=== PATIENT | female | born 1965 | race Caucasian/White ===

== ENCOUNTER 2017-10-12 12:59 | Emergency (ER) | payer MEDICAID ==
[~2017-10-12] VITALS: Ht 165.1 cm; Wt 111.5 kg
[~2017-10-12 12:59] MED LIST: ACET325T14 PO; APIX5TAB PO; ASPI325T17 PO; CHOL100011 PO; FLEC100T PO; GLUC15006 PO; GLUC500T11 PO; HYAL1CAP PO; IBUP-1484 PO; INSU100C SQ-INSULIN; LOSA25TA5 PO; METO50TA82 PO; OMEP-110 PO; OMEP20TA62 PO; SOTA120T26 PO
[2017-10-12 13:01] VITALS: BP 171/91
== END 2017-10-12 15:00 | disposition home or self-care (01) ==
LOC: ED 14:54
DX: G89.29 Other chronic pain (principal); M25.562 Pain in left knee; I10 Essential (primary) hypertension; I48.91 Unspecified atrial fibrillation; E11.9 Type 2 diabetes mellitus without complications; F17.210 Nicotine dependence, cigarettes, uncomplicated; N83.209 Unspecified ovarian cyst, unspecified side
CPT/HCPCS: 99284

== ENCOUNTER 2018-02-02 18:57 | Emergency (ER) | payer MEDICAID ==
[~2018-02-02] VITALS: Ht 165.1 cm; Wt 113.0 kg
[2018-02-02 19:02] VITALS: BP 163/95
[2018-02-02] MEDS ORDERED: KETOROLAC 30 MG/1 ML ONE (19:27)
[2018-02-02] MEDS ORDERED: METHOCARBAMOL 750 MG TABLET ONE (19:27)
[2018-02-02] MEDS ORDERED: METHOCARBAMOL 500 MG TABLET PO ONE ×2 (19:30)
[2018-02-02] MEDS ORDERED: KETOROLAC 30 MG/1 ML IM ONE (19:30)
== END 2018-02-02 20:28 | disposition home or self-care (01) ==
LOC: ED 20:08
DX: S39.012A Strain of muscle, fascia and tendon of lower back, initial encounter (principal); I10 Essential (primary) hypertension; E11.9 Type 2 diabetes mellitus without complications; M51.36 Other intervertebral disc degeneration, lumbar region; X58.XXXA Exposure to other specified factors, initial encounter; Y93.89 Activity, other specified; Y92.89 Other specified places as the place of occurrence of the external cause; Y99.8 Other external cause status; Z88.6 Allergy status to analgesic agent; Z88.5 Allergy status to narcotic agent; Z88.8 Allergy status to other drugs, medicaments and biological substances
CPT/HCPCS: 72110; 96372; 99284; J1885

== ENCOUNTER → 2019-01-09 | Outpatient (CLI) | payer MEDICARE, MEDICAID ==
[~2019-01-09] MED LIST changes: +ASPIRIN; +ATOR20TA37 PO; +BENZ12LI TP; +FISH1CAP PO; +INSU300I SC; +LOSA25TA25 PO; -LOSA25TA5 PO; +MULTIVITAMIN GUMMIES PO; +NYST1000 PO; +TURMERIC CURCUMIN PO; +TYLENOL ARTHRITIS; +VITAMIN D LIQUID PO
[2019-01-09 11:02] LABS: BASOPHILS # (AUTO) 0.02 x10^3/uL (0-0.1); BASOPHILS % (AUTO) 1 % (0-1); EOSINOPHILS # (AUTO) 0.07 x10^3/uL (0-0.4); EOSINOPHILS % (AUTO) 2 % (1-7); LYMPHOCYTES % (AUTO) 32 % (22-44); MD NO; MEAN CORPUSCULAR HEMOGLOBIN 34.6 pg (27.0-34.8); MEAN CORPUSCULAR HGB CONC 34.6 g/dL (32.4-35.8); MEAN CORPUSCULAR VOLUME 99.8 fL (80-100); MEAN PLATELET VOLUME 7.6 fL (7.4-10.4); MONOCYTES # (AUTO) 0.24 x10^3/uL (0.2-0.8); MONOCYTES % (AUTO) 6 % (2-9); NEUTROPHILS # (AUTO) 2.45 x10^3/uL (1.8-6.8); NEUTROPHILS % (AUTO) 60 % (42-75); PLATELET COUNT 183 x10^3/uL (130-400); RED BLOOD COUNT 4.16 x10^6/uL (3.82-5.3); RED CELL DISTRIBUTION WIDTH 13.6 % (9.6-15.2)
[2019-01-09 11:12] LABS: ALANINE AMINOTRANSFERASE 29 U/L (12-78); ALBUMIN 3.9 g/dL (3.4-5.0); ANION GAP 6 mmol/L (5-15); CALCIUM 8.5 mg/dL (8.5-10.1); CHLORIDE 105 mmol/L (98-107); CREATININE 0.87 mg/dL (0.55-1.02)
[2019-01-09 11:14] LABS: ALKALINE PHOSPHATASE 177 U/L (45-117); BILIRUBIN,TOTAL 0.7 mg/dL (0.2-1.0)
== END | disposition home or self-care (01) ==
LOC: STAR 09:54
PROVIDERS: ATTEND Surgery
DX: Z01.818 Encounter for other preprocedural examination (principal); N63.20 Unspecified lump in the left breast, unspecified quadrant
CPT/HCPCS: 36415; 80053; 85025; 93005

== ENCOUNTER 2019-01-16 10:04 | Day surgery (SDC) | payer MEDICARE, MEDICAID ==
[~2019-01-16] VITALS: Ht 165.1 cm; Wt 104.0 kg
[2019-01-16] MEDS ORDERED: SODIUM BICARBONATE 4.0%, 5ML ONE (11:26)
[2019-01-16] MEDS ORDERED: LIDOCAINE 1%, 20ML ONE (11:26)
[2019-01-16] MEDS ORDERED: LIDOCAINE 1%-EPI 1:100K, 20ML ONE (11:26)
[2019-01-16] MEDS ORDERED: HYDROmorphone 2 MG/ML, 1ML IVPush PRN (11:30)
[2019-01-16] MEDS ORDERED: OXYcodone 5 MG/5 ML ORAL.SOL UDC PO PRN (11:30)
[2019-01-16] MEDS ORDERED: hydrALAzine 20 MG/ML, 1ML IV PRN (11:30)
[2019-01-16] MEDS ORDERED: HALOPERIDOL 5 MG/ML IV PRN (11:30)
[2019-01-16] MEDS ORDERED: LABETALOL 5MG/ML, 20ML IV PRN (11:30)
[2019-01-16] MEDS ORDERED: DIPHENHYDRAMINE 50 MG/ML, 1ML IVPush PRN (11:30)
[2019-01-16] MEDS ORDERED: PROMETHAZINE 25 MG/ML, 1ML IV PRN (11:30)
[2019-01-16] MEDS ORDERED: FENTANYL PF 100 MCG/2ML IV PRN (11:30)
[2019-01-16] MEDS ORDERED: PROCHLORPERAZINE 5 MG/ML, 2ML IV PRN (11:30)
[2019-01-16] MEDS ORDERED: METOPROLOL 1 MG/ML, 5ML IV PRN (11:30)
[2019-01-16] MEDS ORDERED: LACTATED RINGERS 1,000 ML IV SCH (11:57)
[2019-01-16 12:23] VITALS: BP 155/91
[2019-01-16] MEDS ORDERED: ACETAMINOPHEN 500 MG TABLET PO ONE (12:30)
[2019-01-16] MEDS ORDERED: GABAPENTIN 300 MG CAPSULE PO ONE (12:30)
[2019-01-16] MEDS ORDERED: FAMOTIDINE 20 MG/2 ML IVPush ONE (12:30)
[2019-01-16] MEDS ORDERED: LORazepam 2 MG/ML, 1ML IVPush ONE (12:30)
[2019-01-16] MEDS ORDERED: METOCLOPRAMIDE 5 MG/ML, 2ML IVPush ONE (12:30)
[2019-01-16] MEDS ORDERED: FENTANYL PF 100 MCG/2ML ONE ×3 (12:56→17:26)
[2019-01-16] MEDS ORDERED: LORazepam 2 MG/ML, 1ML ONE (13:14)
[2019-01-16] MEDS ORDERED: KETOROLAC 30 MG/1 ML ONE (13:38)
[2019-01-16] MEDS ORDERED: BUPIVACAINE/PF-EPI 0.5% 1:200K INFIL ONE (13:59)
[2019-01-16] MEDS ORDERED: ROCURONIUM 10MG/ML,5ML ONE (14:47)
[2019-01-16] MEDS ORDERED: SUCCINYLCHOLINE 20 MG/ML, 10ML ONE (14:47)
[2019-01-16] MEDS ORDERED: GLYCOPYRROLATE 0.2MG/1ML, 5ML ONE (14:47)
[2019-01-16] MEDS ORDERED: NEOSTIGMINE 1 MG/ML, 10ML ONE (14:47)
[2019-01-16] MEDS ORDERED: ONDANSETRON 2MG/ML, 2ML ONE (14:47)
[2019-01-16] MEDS ORDERED: CEFAZOLIN 1,000 MG ONE (14:47)
[2019-01-16] MEDS ORDERED: PROPOFOL 10 MG/ML, 20ML ONE (14:47)
[2019-01-16] MEDS ORDERED: DEXAMETHASONE 4 MG/ML, 1ML ONE (14:47)
[2019-01-16] MEDS ORDERED: ONDANSETRON 2MG/ML, 2ML IVPush PRN (15:00)
[2019-01-16] MEDS ORDERED: morphine SULFATE 10 MG/ML, 1ML IVPush PRN (15:00)
[2019-01-16] MEDS ORDERED: IBUPROFEN 600 MG TABLET PO SCH (16:00)
== END 2019-01-16 19:15 | disposition home or self-care (01) ==
LOC: CFH 10:04 → OUT 19:15
PROVIDERS: ATTEND Surgery
DX: D24.2 Benign neoplasm of left breast (principal); I10 Essential (primary) hypertension; E11.9 Type 2 diabetes mellitus without complications; K21.9 Gastro-esophageal reflux disease without esophagitis; I48.91 Unspecified atrial fibrillation; Z79.4 Long term (current) use of insulin; Z88.6 Allergy status to analgesic agent; Z88.5 Allergy status to narcotic agent; Z88.8 Allergy status to other drugs, medicaments and biological substances
CPT/HCPCS: 19281; 19301; 76098; 82962; 88307; J0330; J0690; J1100; J1885; J2060; J2405; J2704; J2710; J2765; J3010; J3490; J7120

== ENCOUNTER 2020-01-30 12:01 | Inpatient (IN) | payer MEDICARE ==
[~2020-01-30] VITALS: Ht 165.1 cm; Wt 124.2 kg
[~2020-01-30 12:01] MED LIST changes: -IBUP-1484 PO; +IBUP-1902 PO
--- NOTE | 2020-01-30 12:34 | NUR ---
PT BIB BY EMS FOR SOB, NAUSEA, DIZZY, AND WEAK FOR 2-3 DAYS. PT ALSO HAS NEW ONSET BILAT ANKLE SWELLING. PT FOUND TO BE IN AFIB UPON ARRIVAL AT A RATE AROUND 130. PT SAYS SHE HAD AN ABLATION FOR AFIB IN 2014. PT DOES NOT TAKE MEDS FOR RATE CONTROL. PT RESTING IN GURNEY. IV STARTED. EKG COMPLETE. MD IS BEDSIDE FOR ASSESSMENT.
[2020-01-30] MEDS ORDERED: [UNRECOGNIZED DRUG - OTHER] (12:47)
[2020-01-30] MEDS ORDERED: ASPIRIN 81 MG TABLET CHEW PO ONE (13:00)
[2020-01-30] MEDS ORDERED: SODIUM CHLORIDE FLUSH 10ML SYR IVF ONE (13:00)
[2020-01-30] MEDS ORDERED: METOPROLOL 1 MG/ML, 5ML ONE ×2 (13:02→13:46)
[2020-01-30] MEDS ORDERED: ASPIRIN 81 MG TABLET CHEW ONE (13:02)
[2020-01-30] MEDS: METOPROLOL 1 MG/ML, 5ML IVPush PRN ×2 (13:06→13:50)
--- NOTE | 2020-01-30 13:10 | NUR ---
PT MEDICATED PER MAR. WILL MONITOR HR
[2020-01-30 13:29] LABS: BASOPHILS # (AUTO) 0.02 x10^3/uL (0-0.1); BASOPHILS % (AUTO) 0 % (0-1); EOSINOPHILS # (AUTO) 0.02 x10^3/uL (0-0.4); EOSINOPHILS % (AUTO) 0 % (1-7); LYMPHOCYTES # (AUTO) 1.01 x10^3/uL (1-3.4); LYMPHOCYTES % (AUTO) 20 % (22-44); MD NO; MEAN CORPUSCULAR HEMOGLOBIN 32.4 pg (27.0-34.8); MEAN CORPUSCULAR HGB CONC 32.9 g/dL (32.4-35.8); MEAN CORPUSCULAR VOLUME 98.6 fL (80-100); MEAN PLATELET VOLUME 7.5 fL (7.4-10.4); MONOCYTES # (AUTO) 0.37 x10^3/uL (0.2-0.8); MONOCYTES % (AUTO) 7 % (2-9); NEUTROPHILS # (AUTO) 3.77 x10^3/uL (1.8-6.8); NEUTROPHILS % (AUTO) 73 % (42-75); PLATELET COUNT 259 x10^3/uL (130-400); RED BLOOD COUNT 3.37 x10^6/uL (3.82-5.3); RED CELL DISTRIBUTION WIDTH 14.6 % (9.6-15.2)
[2020-01-30 13:39] LABS: INTERNATIONAL NORMALIZED RATIO 1.02 (0.93-1.1); PROTHROMBIN TIME 10.8 Seconds (9.6-11.5)
[2020-01-30 13:46] LABS: ALANINE AMINOTRANSFERASE 21 U/L (12-78); ALBUMIN 2.7 g/dL (3.4-5.0); ANION GAP 7 mmol/L (5-15); CALCIUM 8.1 mg/dL (8.5-10.1); CHLORIDE 107 mmol/L (98-107)
[2020-01-30 13:50] LABS: ALKALINE PHOSPHATASE 99 U/L (45-117); TOTAL PROTEIN 7.5 g/dL (6.4-8.2); TROPONIN I < 0.015 ng/mL (0.000-0.045)
--- NOTE | 2020-01-30 13:57 | NUR ---
PT RESTING IN [facility]. MEDICATED PER MD INSTRUCTIONS
[2020-01-30] MEDS ORDERED: METOPROLOL TARTRATE 25 MG TAB PO ONE (14:00)
[2020-01-30] MEDS ORDERED: POTASSIUM CHLORIDE 20 MEQ TAB.ER.PRT PO ONE (14:00)
[2020-01-30] MEDS ORDERED: POTASSIUM CHLORIDE 40 MEQ in SODIUM CHLORIDE 0.9% 500 ML IV ONE (14:00)
[2020-01-30] MEDS ORDERED: POTASSIUM CHLORIDE 20 MEQ TAB.ER.PRT ONE (14:14)
[2020-01-30] MEDS ORDERED: METOPROLOL TARTRATE 25 MG TAB ONE (14:15)
[2020-01-30 15:07] VITALS: BP 147/73
[2020-01-30] MEDS ORDERED: PIOG15TA66 PO (15:51)
[2020-01-30] MEDS ORDERED: DILTIAZEM 5 MG/ML, 5ML IVPush PRN (17:00)
[2020-01-30] MEDS ORDERED: BACLOFEN 10 MG TABLET PO PRN (17:00)
[2020-01-30] MEDS ORDERED: HEPARIN 25,000 UNITS/250ML PMX 250 ML IV PRN (18:00)
[2020-01-30] MEDS ORDERED: HEPARIN 5,000 UNITS/ML, 1ML IV ONE (18:00)
[2020-01-30] MEDS ORDERED: DILTIAZEM 125 MG in SODIUM CHLORIDE 0.9% 100 ML IV SCH (18:00)
[2020-01-30 20:17] VITALS: BP 143/79
[2020-01-30] MEDS: METOPROLOL TARTRATE 25 MG TAB PO SCH (20:42)
[2020-01-30] MEDS: FAMOTIDINE 20 MG TABLET PO SCH (20:42)
[2020-01-31 02:20] VITALS: BP 141/81
[2020-01-31 03:29] LABS: BASOPHILS # (AUTO) 0.01 x10^3/uL (0-0.1); BASOPHILS % (AUTO) 0 % (0-1); EOSINOPHILS # (AUTO) 0.01 x10^3/uL (0-0.4); EOSINOPHILS % (AUTO) 0 % (1-7); LYMPHOCYTES # (AUTO) 0.87 x10^3/uL (1-3.4); LYMPHOCYTES % (AUTO) 14 % (22-44); MD NO; MEAN CORPUSCULAR HEMOGLOBIN 32.6 pg (27.0-34.8); MEAN CORPUSCULAR HGB CONC 33.1 g/dL (32.4-35.8); MEAN CORPUSCULAR VOLUME 98.3 fL (80-100); MEAN PLATELET VOLUME 7.4 fL (7.4-10.4); MONOCYTES # (AUTO) 0.28 x10^3/uL (0.2-0.8); MONOCYTES % (AUTO) 5 % (2-9); NEUTROPHILS # (AUTO) 5.05 x10^3/uL (1.8-6.8); NEUTROPHILS % (AUTO) 81 % (42-75); PLATELET COUNT 267 x10^3/uL (130-400); RED BLOOD COUNT 3.39 x10^6/uL (3.82-5.3); RED CELL DISTRIBUTION WIDTH 15.4 % (9.6-15.2)
[2020-01-31 03:33] LABS: ANION GAP 8 mmol/L (5-15); CHLORIDE 107 mmol/L (98-107); CREATININE 0.68 mg/dL (0.55-1.02)
[2020-01-31] MEDS: HEPARIN 5,000 UNITS/ML, 1ML IV PRN ×2 (03:59→10:46)
[2020-01-31] MEDS: METOPROLOL TARTRATE 25 MG TAB PO SCH ×2 (06:19→16:48)
[2020-01-31] MEDS ORDERED: POTASSIUM CHLORIDE 20 MEQ TAB.ER.PRT PO ONE ×2 (06:30→17:00)
[2020-01-31] MEDS ORDERED: FUROSEMIDE 40 MG/4 ML IV ONE (08:00)
[2020-01-31 08:55] VITALS: BP 167/83
[2020-01-31] MEDS: FAMOTIDINE 20 MG TABLET PO SCH ×2 (09:37→20:39)
[2020-01-31] MEDS ORDERED: FILTER 0.22 MICRON IV SCH (11:45)
[2020-01-31] MEDS ORDERED: AMIODARONE 150 MG in DEXTROSE 5% 100 ML IV ONE (11:45)
[2020-01-31] MEDS: RIVAROXABAN 20 MG TABLET PO SCH (12:06)
[2020-01-31] MEDS: ACETAMINOPHEN 325 MG TABLET PO PRN ×2 (12:06→20:40)
[2020-01-31] MEDS: AMIODARONE 450 MG in DEXTROSE 5% 241 ML IV PRN ×2 (12:07→21:06)
[2020-01-31 13:38] VITALS: BP 143/89
[2020-01-31] MEDS ORDERED: OMEPRAZOLE 20 MG CAPSULE.DR PO PRN (15:00)
[2020-01-31] MEDS: INSULIN LISPRO 100 UNITS/ML, PEN SQ-INSULIN SCH ×2 (16:48→20:49)
[2020-01-31 17:20] LABS: TROPONIN I < 0.015 ng/mL (0.000-0.045)
[2020-01-31 20:12] VITALS: BP 152/84
[2020-01-31] MEDS: ATORVASTATIN 20 MG TABLET PO SCH (20:40)
[2020-01-31] MEDS: INSULIN GLARGINE HUM REC ANLOG 30 UNIT SC SCH (20:41)
[2020-01-31] MEDS: INSULIN GLARGINE HUM REC ANLOG 15 UNIT SC SCH (20:41)
[2020-02-01 01:38] VITALS: BP 147/85
[2020-02-01] MEDS: ACETAMINOPHEN 325 MG TABLET PO PRN ×3 (01:54→20:44)
[2020-02-01] MEDS: METOPROLOL TARTRATE 25 MG TAB PO SCH ×2 (05:52→17:45)
[2020-02-01 07:00] VITALS: BP 144/86
[2020-02-01] MEDS: FAMOTIDINE 20 MG TABLET PO SCH ×2 (08:24→20:44)
[2020-02-01] MEDS: INSULIN LISPRO 100 UNITS/ML, PEN SQ-INSULIN SCH ×4 (08:24→20:45)
[2020-02-01] MEDS: RIVAROXABAN 20 MG TABLET PO SCH (08:25)
[2020-02-01] MEDS: LOSARTAN 25MG TABLET PO SCH (08:25)
[2020-02-01] MEDS: INSULIN GLARGINE HUM REC ANLOG 15 UNIT SC SCH (08:25)
[2020-02-01 11:06] LABS: CHLORIDE 105 mmol/L (98-107)
[2020-02-01 11:12] LABS: ANION GAP 7 mmol/L (5-15); CALCIUM 8.3 mg/dL (8.5-10.1); CREATININE 0.79 mg/dL (0.55-1.02)
[2020-02-01] MEDS ORDERED: OMNIPAQUE 350 MG/ML, 100ML BOTTLE ONE (11:18)
[2020-02-01] MEDS ORDERED: PROPOFOL 10 MG/ML, 20ML ONE (13:16)
[2020-02-01 18:22] VITALS: BP 122/77
[2020-02-01] MEDS: AMIODARONE 200 MG TABLET PO SCH (20:44)
[2020-02-01] MEDS: ATORVASTATIN 20 MG TABLET PO SCH (20:44)
[2020-02-01] MEDS: INSULIN GLARGINE HUM REC ANLOG 30 UNIT SC SCH (20:59)
[2020-02-02 01:01] VITALS: BP 142/80
[2020-02-02] MEDS: ACETAMINOPHEN 325 MG TABLET PO PRN ×2 (03:52→17:02)
[2020-02-02 04:10] LABS: BASOPHILS # (AUTO) 0.02 x10^3/uL (0-0.1); BASOPHILS % (AUTO) 0 % (0-1); EOSINOPHILS # (AUTO) 0.02 x10^3/uL (0-0.4); EOSINOPHILS % (AUTO) 1 % (1-7); LYMPHOCYTES # (AUTO) 0.79 x10^3/uL (1-3.4); LYMPHOCYTES % (AUTO) 16 % (22-44); MD NO; MEAN CORPUSCULAR HEMOGLOBIN 32.3 pg (27.0-34.8); MEAN CORPUSCULAR HGB CONC 32.6 g/dL (32.4-35.8); MEAN CORPUSCULAR VOLUME 99.1 fL (80-100); MEAN PLATELET VOLUME 7.5 fL (7.4-10.4); MONOCYTES # (AUTO) 0.37 x10^3/uL (0.2-0.8); MONOCYTES % (AUTO) 7 % (2-9); NEUTROPHILS # (AUTO) 3.87 x10^3/uL (1.8-6.8); NEUTROPHILS % (AUTO) 76 % (42-75); PLATELET COUNT 245 x10^3/uL (130-400); RED BLOOD COUNT 3.32 x10^6/uL (3.82-5.3); RED CELL DISTRIBUTION WIDTH 15.3 % (9.6-15.2)
[2020-02-02 04:19] LABS: ANION GAP 9 mmol/L (5-15); CALCIUM 8.1 mg/dL (8.5-10.1); CHLORIDE 103 mmol/L (98-107)
[2020-02-02 04:20] LABS: CREATININE 0.73 mg/dL (0.55-1.02)
[2020-02-02 05:56] VITALS: BP 144/79
[2020-02-02] MEDS: METOPROLOL TARTRATE 25 MG TAB PO SCH ×2 (05:57→17:02)
[2020-02-02] MEDS: INSULIN GLARGINE HUM REC ANLOG 15 UNIT SC SCH (07:58)
[2020-02-02] MEDS: LOSARTAN 25MG TABLET PO SCH (08:15)
[2020-02-02] MEDS: AMIODARONE 200 MG TABLET PO SCH (08:15)
[2020-02-02] MEDS: FAMOTIDINE 20 MG TABLET PO SCH (08:15)
[2020-02-02] MEDS ORDERED: POTASSIUM CHLORIDE 20 MEQ TAB.ER.PRT PO ONE (08:30)
[2020-02-02] MEDS: AMOXICILLIN/CLAV 875-125MG TABLET PO SCH ×2 (09:00→17:02)
[2020-02-02] MEDS: INSULIN LISPRO 100 UNITS/ML, PEN SQ-INSULIN SCH ×3 (09:17→17:06)
[2020-02-02] MEDS: RIVAROXABAN 20 MG TABLET PO SCH (09:17)
[2020-02-02 10:19] VITALS: BP 118/74
[2020-02-02 14:59] VITALS: BP 133/83
[2020-02-02] MEDS ORDERED: AMOX1TAB12 PO (16:06)
[2020-02-02] MEDS ORDERED: RIVA20TA PO (16:06)
[2020-02-02] MEDS ORDERED: METO25TA35 PO (16:06)
[2020-02-02] MEDS ORDERED: AMIO200T42 PO ×2 (16:06)
== END 2020-02-02 21:28 | disposition home or self-care (01) | DRG 308 ==
LOC: ED 12:58 → EDIP 14:03 → INTOOBSV 14:03 → 5SO 14:45 → OBSVTOIN 01-31 17:45
PROVIDERS: ADMIT Hospitalist; ATTEND Hospitalist
PROC: 5A2204Z Restoration of Cardiac Rhythm, Single (ICD-10-PCS; principal; 2020-02-01 13:15)
DX: I48.91 Unspecified atrial fibrillation (principal); J96.01 Acute respiratory failure with hypoxia; I50.33 Acute on chronic diastolic (congestive) heart failure; D68.69 Other thrombophilia; Z68.42 Body mass index [BMI] 45.0-49.9, adult; I11.0 Hypertensive heart disease with heart failure; I48.92 Unspecified atrial flutter; J02.9 Acute pharyngitis, unspecified; I89.1 Lymphangitis; K04.7 Periapical abscess without sinus; D64.9 Anemia, unspecified; E11.9 Type 2 diabetes mellitus without complications; E66.9 Obesity, unspecified; E78.5 Hyperlipidemia, unspecified; E87.6 Hypokalemia; Z79.01 Long term (current) use of anticoagulants; Z79.4 Long term (current) use of insulin; Z87.891 Personal history of nicotine dependence; Z72.89 Other problems related to lifestyle; Z88.5 Allergy status to narcotic agent
CPT/HCPCS: 36415; 70491; 71045; 80048; 80053; 82962; 83036; 83880; 84484; 85025; 85520; 85610; 85730; 87081; 87147; 87880; 93005; 93306; 93312; 93321; 93325; 96374; 96375; 96376; 99291; G0378; J1644; J1940; J2704; J3480; J7060; Q9967; J0282; J1815; J7040

== ENCOUNTER 2020-07-26 16:16 | Emergency (ER) | payer MEDICARE ==
[~2020-07-26] VITALS: Ht 165.1 cm; Wt 106.8 kg
[~2020-07-26 16:16] MED LIST changes: +AMIO200T42 PO; +AMOX1TAB12 PO; +DIGO125T85 PO; +METO25TA35 PO; +PIOG15TA66 PO; +RIVA20TA PO; +SOTA80TA18 PO; +SPIR25TA5 PO; +[UNRECOGNIZED DRUG - OTHER]
[2020-07-26 16:19] VITALS: BP 159/59
--- NOTE | 2020-07-26 16:49 | NUR ---
PADDOCK JUDGE: PT AMBULATORY TO ROOM FROM LOBBY
[2020-07-26 17:25] LABS: MICROSCOPIC AUTO
--- NOTE | 2020-07-26 17:57 | NUR ---
BREAK RN: PT DISCHARGED HOME IN A STABLE CONDITION. DC INSTRUCTIONS DISCUSSED WITH PT. PT VERBALIZED UNDERSTANDING. NO FURTHER QUESTIONS OR CONCERNS EXPRESSED AT THAT TIME. PT AMBULATED WITH HOME WALKER OUT OF ED.
== END 2020-07-26 18:00 | disposition home or self-care (01) ==
LOC: ED 17:12
DX: N30.01 Acute cystitis with hematuria (principal); B85.1 Pediculosis due to Pediculus humanus corporis; E78.00 Pure hypercholesterolemia, unspecified; I10 Essential (primary) hypertension; E11.9 Type 2 diabetes mellitus without complications; I48.91 Unspecified atrial fibrillation; M19.90 Unspecified osteoarthritis, unspecified site; Z90.710 Acquired absence of both cervix and uterus; Z90.49 Acquired absence of other specified parts of digestive tract; Z90.89 Acquired absence of other organs
CPT/HCPCS: 81001; 87077; 87086; 87186; 99283

== ENCOUNTER → 2020-09-23 | Outpatient (CLI) | payer MEDICARE | END | disposition home or self-care (01) | LOC: RAD 10:22 | PROVIDERS: ATTEND Nurse Practitioner Adult Health | DX: R63.0 Anorexia (principal); R63.4 Abnormal weight loss; E11.9 Type 2 diabetes mellitus without complications | CPT/HCPCS: 78264; A9541 ==